=== PATIENT | female | born 1935 | race Caucasian/White ===

== ENCOUNTER 2019-07-17 23:29 | Observation (INO) ==
[2019-07-18 00:23] LABS: Basophils % 0.6 %; Eosinophils # 0.3 K/mcL (0.0-0.6); Eosinophils % 4.2 %; Hematocrit 40.3 % (35.3-44.9); Hemoglobin 13.5 g/dL (11.5-15.4); Immature Granulocytes % 0.2 % (0-4); Lymphocytes # 1.1 K/mcL (0.6-4.6); Lymphocytes % 17.4 %; Mean Corpuscular HGB Conc 33.5 g/dL (31.6-35.5); Mean Corpuscular Hemoglobin 31.3 pg (28.0-33.3); Mean Corpuscular Volume 93.5 fL (83.0-100.0); Mean Platelet Volume 9.8 fL (9.4-12.4); Monocytes # 0.5 K/mcL (0.0-1.3); Monocytes % 7.3 %; Neutrophils # 4.5 K/mcL (1.6-8.9); Platelet Count 162 K/mcL (140-400); Red Blood Count 4.31 M/mcL (3.82-4.97); Red Cell Distribution Width 12.4 % (11.5-14.5); Segmented Neutrophils % 70.3 %; White Blood Count 6.4 K/mcL (4.3-11.1)
[2019-07-18 00:32] LABS: Prothrombin Time 11.2 Seconds (9.4-12.1)
[2019-07-18 00:34] LABS: Activated Partial Thrombo Time 28.4 Seconds (26.0-36.0)
[2019-07-18 00:43] LABS: BUN/Creatinine Ratio 20 (6-26); Blood Urea Nitrogen 16 mg/dL (8-23); Calcium 9.6 mg/dL (8.6-10.3); Carbon Dioxide 28 mEq/L (23-29); Chloride 105 mEq/L (98-107); Glucose 121 mg/dL (70-105); Osmolality,Calculated 292 (280-300); Potassium 3.9 mEq/L (3.5-5.1); Sodium 140 mEq/L (136-145); Troponin I < 0.03 ng/mL (< 0.04); eGFR For African Americans > 60 (> 60); eGFR For Non-African Americans > 60 (> 60)
[2019-07-18 01:04] LABS: Bilirubin,Urine Negative (Negative); Blood,Urine Negative (Negative); Clarity,Urine Clear (Clear); Color,Urine Yellow (Yellow); Glucose,Urine (UA) Normal (Normal); Ketones,Urine Negative (Negative); Leukocyte Esterase,Urine Small (Negative); Nitrite,Urine Negative (Negative); Protein,Urine Negative (Neg-Trace); Specific Gravity,Urine 1.017 (1.010-1.025); Urobilinogen,Urine Normal (Normal)
[2019-07-18 01:06] LABS: Bacteria,Urine None Seen per hpf (None-Few); Hyaline Casts,Urine None Seen per lpf (None-Few); Squamous Epithelial Cell,Urine Many per lpf (None-Few)
[2019-07-18] MEDS ORDERED: Naloxone 0.4 MG/ML INJ IVP PRN (02:18)
[2019-07-18] MEDS ORDERED: lisinopriL 10 MG TABLET PO ONE ×2 (02:20→06:26)
[2019-07-18] MEDS ORDERED: 0.9 % Sodium Chloride 1,000 ML IVC SCH (02:30)
[2019-07-18 05:04] LABS: Albumin 3.8 g/dL (3.5-5.7); Albumin/Globulin Ratio 1.6 (1.1-2.2); Bilirubin,Direct 0.1 mg/dL (0.0-0.2); Bilirubin,Indirect 0.4 mg/dL (0.0-1.0); Bilirubin,Total 0.5 mg/dL (0.3-1.0); Globulin 2.4 g/dL (2.4-3.5); Phosphorous 2.9 mg/dL (2.7-4.5); Total Protein 6.2 g/dL (6.4-8.9)
[2019-07-18 05:07] LABS: Troponin I < 0.03 ng/mL (< 0.04)
[2019-07-18 09:08] LABS: Estimated Average Glucose 111 mg/dl
[2019-07-18] MEDS: amLODIPine 5 MG TABLET PO SCH (10:16)
[2019-07-18] MEDS: Carbidopa/Levodopa 25/100 TABLET PO SCH ×2 (12:53→16:49)
[2019-07-19] MEDS: *HR* Heparin 5,000 UNIT/ML VIAL SQ SCH ×2 (05:39→17:29)
[2019-07-19] MEDS: amLODIPine 5 MG TABLET PO SCH (10:26)
[2019-07-19] MEDS: Carbidopa/Levodopa 25/100 TABLET PO SCH ×3 (10:26→17:25)
[2019-07-19] MEDS: lisinopriL 10 MG TABLET PO SCH (10:27)
[2019-07-20] MEDS: *HR* Heparin 5,000 UNIT/ML VIAL SQ SCH ×2 (04:57→17:05)
[2019-07-20] MEDS: amLODIPine 5 MG TABLET PO SCH (08:38)
[2019-07-20] MEDS: lisinopriL 10 MG TABLET PO SCH (08:38)
[2019-07-20] MEDS: Carbidopa/Levodopa 25/100 TABLET PO SCH ×3 (08:38→17:05)
[2019-07-21] MEDS: *HR* Heparin 5,000 UNIT/ML VIAL SQ SCH ×2 (05:46→17:05)
[2019-07-21] MEDS: lisinopriL 10 MG TABLET PO SCH (08:29)
[2019-07-21] MEDS: amLODIPine 5 MG TABLET PO SCH (08:29)
[2019-07-21] MEDS: Carbidopa/Levodopa 25/100 TABLET PO SCH ×3 (08:31→17:05)
[2019-07-22] MEDS: *HR* Heparin 5,000 UNIT/ML VIAL SQ SCH ×2 (05:00→17:07)
[2019-07-22] MEDS: amLODIPine 5 MG TABLET PO SCH (08:07)
[2019-07-22] MEDS: lisinopriL 10 MG TABLET PO SCH (08:07)
[2019-07-22] MEDS: Carbidopa/Levodopa 25/100 TABLET PO SCH ×3 (08:07→17:06)
[2019-07-23] MEDS: *HR* Heparin 5,000 UNIT/ML VIAL SQ SCH ×2 (05:28→17:26)
[2019-07-23] MEDS: lisinopriL 10 MG TABLET PO SCH (08:43)
[2019-07-23] MEDS: Carbidopa/Levodopa 25/100 TABLET PO SCH ×3 (08:43→17:26)
[2019-07-23] MEDS: amLODIPine 5 MG TABLET PO SCH (08:44)
[2019-07-24] MEDS: *HR* Heparin 5,000 UNIT/ML VIAL SQ SCH ×2 (05:42→18:51)
[2019-07-24] MEDS: amLODIPine 5 MG TABLET PO SCH (07:07)
[2019-07-24] MEDS: lisinopriL 10 MG TABLET PO SCH (07:07)
[2019-07-24] MEDS: Carbidopa/Levodopa 25/100 TABLET PO SCH ×3 (07:08→18:51)
[2019-07-25] MEDS: *HR* Heparin 5,000 UNIT/ML VIAL SQ SCH (05:43)
[2019-07-25] MEDS: lisinopriL 10 MG TABLET PO SCH (09:12)
[2019-07-25] MEDS: Carbidopa/Levodopa 25/100 TABLET PO SCH ×2 (09:13→14:44)
[2019-07-25 16:01] VITALS: BP 123/59
== END 2019-07-25 16:19 ==
LOC: EMEROOARM 23:29 → 2ANU 23:29 → SUATTDRO 07-18 01:07 → 2ANU 07-18 01:40
PROVIDERS: ADMIT Family Medicine; ATTEND Internal Medicine

== ENCOUNTER 2019-09-09 15:54 | Observation (INO) ==
[2019-09-09] MEDS ORDERED: *HR* OxyCODONE/APAP 5/325 TABLET PO ONE (16:46)
[2019-09-09 19:14] LABS: Hematocrit 36.6 % (35.3-44.9); Hemoglobin 12.5 g/dL (11.5-15.4); Mean Corpuscular HGB Conc 34.2 g/dL (31.6-35.5); Mean Corpuscular Hemoglobin 31.5 pg (28.0-33.3); Mean Corpuscular Volume 92.2 fL (83.0-100.0); Mean Platelet Volume 10.1 fL (9.4-12.4); Platelet Count 156 K/mcL (140-400); Red Blood Count 3.97 M/mcL (3.82-4.97); Red Cell Distribution Width 12.6 % (11.5-14.5); White Blood Count 9.3 K/mcL (4.3-11.1)
[2019-09-09 19:35] LABS: Alanine Aminotransferase < 3 Units/L (7-52); Albumin 3.7 g/dL (3.5-5.7); Albumin/Globulin Ratio 1.6 (1.1-2.2); Alkaline Phosphatase 73 Units/L (34-104); Aspartate Amino Transferase 16 Units/L (13-39); BUN/Creatinine Ratio 26 (6-26); Bilirubin,Total 0.7 mg/dL (0.3-1.0); Blood Urea Nitrogen 18 mg/dL (8-23); Calcium 9.5 mg/dL (8.6-10.3); Carbon Dioxide 27 mEq/L (23-29); Chloride 107 mEq/L (98-107); Creatine Kinase 128 Units/L (30-223); Globulin 2.3 g/dL (2.4-3.5); Glucose 102 mg/dL (70-105); Osmolality,Calculated 288 (280-300); Potassium 3.5 mEq/L (3.5-5.1); Sodium 138 mEq/L (136-145); eGFR For African Americans > 60 (> 60); eGFR For Non-African Americans > 60 (> 60)
[2019-09-09] MEDS ORDERED: Naloxone 0.4 MG/ML INJ IVP PRN (20:30)
[2019-09-09] MEDS ORDERED: *HR* OxyCODONE/APAP 5/325 TABLET PO PRN (20:33)
[2019-09-09] MEDS: *HR* Heparin 5,000 UNIT/ML VIAL SQ SCH (22:05)
[2019-09-09] MEDS: Carbidopa/Levodopa 25/100 TABLET PO SCH (23:48)
[2019-09-09] MEDS: lisinopriL 10 MG TABLET PO SCH (23:48)
[2019-09-10 01:11] LABS: Hematocrit 36.5 % (35.3-44.9); Hemoglobin 12.4 g/dL (11.5-15.4); Mean Corpuscular Hemoglobin 31.2 pg (28.0-33.3); Mean Corpuscular Volume 91.7 fL (83.0-100.0); Platelet Count 154 K/mcL (140-400); Red Blood Count 3.98 M/mcL (3.82-4.97); Red Cell Distribution Width 12.5 % (11.5-14.5); White Blood Count 7.1 K/mcL (4.3-11.1)
[2019-09-10 01:16] LABS: INR 1.1; Prothrombin Time 12.7 Seconds (9.4-12.1)
[2019-09-10 01:18] LABS: Activated Partial Thrombo Time 27.9 Seconds (26.0-36.0)
[2019-09-10 02:13] LABS: Alanine Aminotransferase < 3 Units/L (7-52); Albumin 3.5 g/dL (3.5-5.7); Albumin/Globulin Ratio 1.4 (1.1-2.2); Alkaline Phosphatase 68 Units/L (34-104); Aspartate Amino Transferase 16 Units/L (13-39); BUN/Creatinine Ratio 30 (6-26); Bilirubin,Total 0.8 mg/dL (0.3-1.0); Blood Urea Nitrogen 20 mg/dL (8-23); Calcium 9.3 mg/dL (8.6-10.3); Carbon Dioxide 26 mEq/L (23-29); Chloride 107 mEq/L (98-107); Globulin 2.5 g/dL (2.4-3.5); Glucose 115 mg/dL (70-105); Osmolality,Calculated 292 (280-300); Potassium 3.4 mEq/L (3.5-5.1); Sodium 139 mEq/L (136-145); eGFR For African Americans > 60 (> 60); eGFR For Non-African Americans > 60 (> 60)
[2019-09-10] MEDS: Acetaminophen 325 MG TABLET PO PRN ×3 (05:34→23:54)
[2019-09-10] MEDS: *HR* Heparin 5,000 UNIT/ML VIAL SQ SCH ×2 (06:00→16:00)
[2019-09-10] MEDS: lisinopriL 10 MG TABLET PO SCH ×2 (07:58→19:55)
[2019-09-10] MEDS: Carbidopa/Levodopa 25/100 TABLET PO SCH ×3 (07:58→19:55)
[2019-09-11 04:58] LABS: Hematocrit 38.3 % (35.3-44.9); Hemoglobin 13.1 g/dL (11.5-15.4); Mean Corpuscular HGB Conc 34.2 g/dL (31.6-35.5); Mean Corpuscular Hemoglobin 31.1 pg (28.0-33.3); Platelet Count 167 K/mcL (140-400); Red Blood Count 4.21 M/mcL (3.82-4.97); Red Cell Distribution Width 12.4 % (11.5-14.5); White Blood Count 6.9 K/mcL (4.3-11.1)
[2019-09-11 05:08] LABS: BUN/Creatinine Ratio 25 (6-26); Blood Urea Nitrogen 16 mg/dL (8-23); Calcium 9.4 mg/dL (8.6-10.3); Carbon Dioxide 26 mEq/L (23-29); Chloride 105 mEq/L (98-107); Glucose 100 mg/dL (70-105); Osmolality,Calculated 285 (280-300); Potassium 3.7 mEq/L (3.5-5.1); Sodium 137 mEq/L (136-145); eGFR For African Americans > 60 (> 60); eGFR For Non-African Americans > 60 (> 60)
[2019-09-11] MEDS: *HR* Heparin 5,000 UNIT/ML VIAL SQ SCH ×3 (05:43→16:59)
[2019-09-11] MEDS: lisinopriL 10 MG TABLET PO SCH ×2 (10:07→20:55)
[2019-09-11] MEDS: Carbidopa/Levodopa 25/100 TABLET PO SCH ×3 (10:07→20:55)
[2019-09-12] MEDS: *HR* Heparin 5,000 UNIT/ML VIAL SQ SCH ×2 (05:04→15:05)
[2019-09-12] MEDS: Cholecalciferol (D-3) 1,000 UNIT (25MCG) TABLET PO SCH (08:50)
[2019-09-12] MEDS: lisinopriL 10 MG TABLET PO SCH ×2 (08:50→19:54)
[2019-09-12] MEDS: Carbidopa/Levodopa 25/100 TABLET PO SCH ×3 (08:50→19:54)
[2019-09-12] MEDS ORDERED: polyethylene glycoL 3350 17 GM POWD.PACK PO PRN (17:28)
[2019-09-13] MEDS: *HR* Heparin 5,000 UNIT/ML VIAL SQ SCH ×2 (06:02→17:51)
[2019-09-13 06:24] LABS: Hematocrit 40.3 % (35.3-44.9); Mean Corpuscular HGB Conc 34.7 g/dL (31.6-35.5); Mean Corpuscular Hemoglobin 31.5 pg (28.0-33.3); Mean Corpuscular Volume 90.8 fL (83.0-100.0); Mean Platelet Volume 10.1 fL (9.4-12.4); Platelet Count 184 K/mcL (140-400); Red Blood Count 4.44 M/mcL (3.82-4.97); Red Cell Distribution Width 12.5 % (11.5-14.5); White Blood Count 8.3 K/mcL (4.3-11.1)
[2019-09-13] MEDS: Carbidopa/Levodopa 25/100 TABLET PO SCH ×3 (08:26→21:23)
[2019-09-13] MEDS: lisinopriL 10 MG TABLET PO SCH ×2 (08:26→21:23)
[2019-09-13] MEDS: Cholecalciferol (D-3) 1,000 UNIT (25MCG) TABLET PO SCH (08:26)
[2019-09-14] MEDS: *HR* Heparin 5,000 UNIT/ML VIAL SQ SCH (04:48)
[2019-09-14] MEDS: Carbidopa/Levodopa 25/100 TABLET PO SCH (08:25)
[2019-09-14] MEDS: lisinopriL 10 MG TABLET PO SCH (08:25)
[2019-09-14] MEDS: Cholecalciferol (D-3) 1,000 UNIT (25MCG) TABLET PO SCH (08:25)
[2019-09-14] MEDS: Acetaminophen 325 MG TABLET PO PRN (09:19)
[2019-09-14 11:27] VITALS: BP 125/75
== END 2019-09-14 13:17 ==
LOC: 3BNU 15:54 → EMEROOARM 15:54 → SUATTDRO 19:01 → 3BNU 19:34
PROVIDERS: ADMIT Internal Medicine; ATTEND Internal Medicine